=== PATIENT | male | born 1945 | race Caucasian/White ===

== ENCOUNTER 2018-12-03 12:38 | Emergency (ER) | payer MEDICARE ==
--- NOTE | 2018-12-03 13:21 | EDM.PDOC ---
ED HPI GENERAL MEDICAL PROBLEM - General Chief Complaint: General Stated Complaint: LEFT RING FINGER, RING IS TOO TIGHT Time Seen by Provider: 12/03/18 13:14 Source of Information: Reports: Patient History Limitations: Reports: No Limitations - History of Present Illness INITIAL COMMENTS - FREE TEXT/NARRATIVE: PT ARRIVED WITH A RING THAT WAS VERY TIGHT AND THERE WAS NUMBNESS IN THE FINGER. tHE CLINIC TRIED TO CUT IT OFF BUT COULDN,T GET IT. Onset: Today Duration: Hour(s): Location: Reports: Upper Extremity, Left Associated Symptoms: Reports: No Other Symptoms - Related Data Allergies Allergy/AdvReac Type Severity Reaction Status Date / Time No Known Allergies Allergy Verified 04/03/17 08:41 ED ROS GENERAL - Review of Systems Review Of Systems: See Below Musculoskeletal: Reports: Other (PT HS A TIGHT RING ON HIS LEFT RING FINGER THAT NEEDS CUTTING OFF. ) ED EXAM, GENERAL - Physical Exam Exam: See Below Free Text/Narrative:: PT ARRIVED WITH A RING THAT IS TIGHT ON HIS LEFT RING FINGER. tHE FINGER IS FEELING NUMB. Exam Limited By: No Limitations General Appearance: Alert Neurological: Other ( RING WAS CUT OFF WITHOUT DIFFICULTY) Course - Vital Signs Last Recorded V/S: Last Vital Signs Temp 36.8 C 12/03/18 13:00 Pulse 95 12/03/18 13:00 Resp 16 12/03/18 13:00 BP 149/86 H 12/03/18 13:00 Pulse Ox 96 12/03/18 13:00 Departure - Departure Time of Disposition: 13:18 Disposition: Home, Self-Care 01 Condition: Fair Clinical Impression: Ring avulsion - Discharge Information Referrals: Arnaud Kumar MD [Primary Care Provider] - Care Plan Goals: DISCHARGE -- GET RING EXPANDED.
== END 2018-12-03 13:31 | disposition home or self-care (01) ==
LOC: JP.ED 12:38
DX: S60.445A External constriction of left ring finger, initial encounter (principal); S61.205A Unspecified open wound of left ring finger without damage to nail, initial encounter; W49.04XA Ring or other jewelry causing external constriction, initial encounter
CPT/HCPCS: 99282; 99283

== ENCOUNTER 2019-10-25 18:42 | Emergency (ER) | payer MEDICARE ==
--- NOTE | 2019-10-25 19:53 | EDM.PDOC ---
ED HPI GENERAL MEDICAL PROBLEM - General Chief Complaint: Abdominal Pain Stated Complaint: FEVER,COUGH,BODY ACHES Time Seen by Provider: 10/25/19 20:30 Source of Information: Reports: Patient History Limitations: Reports: No Limitations - History of Present Illness INITIAL COMMENTS - FREE TEXT/NARRATIVE: 74 y/o male with a history of immunosuppression with RA and immune modulated medications including methotrexate and remacaide (last infusion was 7 weeks ago) presents to the ED with fever today of 102 F (40 C) groggy, anorexia, cough and abdominal pain. He developed these symptoms 10 days ago, but did not develop a temp until today. He notes a productive cough, and mild shortness of breath. His abdominal pain is mild and noted only with coughing. He denies nausea and vomiting. He denies loss of taste or smell. He reports no urinary symptoms, tick bites or a rash. He lives with his who is asymptomatic. He drives a road conductor for work and travels to [facility] and [place], [place] regularly for work but has not been out of the area otherwise. body aches Pain Score (Numeric/FACES): 4 - Related Data Allergies Allergy/AdvReac Type Severity Reaction Status Date / Time No Known Allergies Allergy Verified 10/25/19 20:16 Home Meds: Home Meds InFLIXimab [Remicade] 100 mg IV ASDIRECTED 12/03/18 [History] Folic Acid 0.4 mg PO WEEKLY 10/25/19 [History] metHOTREXate sodium [Methotrexate] 2.5 mg PO WEEKLY 10/25/19 [History] Past Medical History HEENT History: Reports: Impaired Vision Musculoskeletal History: Reports: Fracture Other Musculoskeletal History: ankles arms - Infectious Disease History Infectious Disease History: Reports: Chicken Pox, Measles, Mumps, Shingles - Past Surgical History Respiratory Surgical History: Reports: Lung Biopsies Male Surgical History: Reports: Other (See Below) Other Male Surgeries/Procedures: removal of stone in bladder Other Musculoskeletal Surgeries/Procedures:: arme surgery Social & Family History - Caffeine Use Caffeine Use: Reports: Coffee ED ROS GENERAL - Review of Systems Review Of Systems: See Below Constitutional: Reports: Fever, Malaise, Fatigue. Denies: Chills, Diaphoresis Respiratory: Reports: Shortness of Breath, Cough GI/Abdominal: Denies: Diarrhea, Vomiting : Denies: Dysuria, Flank Pain Musculoskeletal: Reports: Joint Pain Skin: Reports: No Symptoms Neurological: Reports: No Symptoms, Confusion ED EXAM, GI/ABD - Physical Exam Exam: See Below Exam Limited By: No Limitations General Appearance: Alert, WD/WN, No Apparent Distress Ears: Normal External Exam, Normal TMs Nose: Normal Inspection Throat/Mouth: Normal Inspection Neck: Normal Inspection Respiratory/Chest: Lungs Clear Cardiovascular: Normal Peripheral Pulses, Regular Rate, Rhythm. No: Diastolic Murmur, Systolic Murmur GI/Abdominal Exam: Normal Bowel Sounds Neurological: Alert, Oriented, CN II-XII Intact, Normal Cognition Skin Exam: Warm, Dry Lymphatic: No Adenopathy Course - Vital Signs Text/Narrative:: This 74 y/o male with immunosuppression presents to the ED with a 10 day history of a cough. He developed a temp of 102 today. His chest xray appears non- acute to me and his EKG appeared non concerning. His CBC reveals a normal WBC, but a plt count of 100K. His differential shows a lymphocytosis. His CRP is elevated which is concerning however he has RA and that may be the cause of the test elevation. His lactic acid is normal. His CMP showed a bilirubin of 1.2 but no elevation of transaminases or ALP. His urine had microscopic RBC and he was advised to have it repeat by his primary care provider in two weeks, otherwise his U/A was unremarkable. He was given Tylenol for a fever, a liter of NS IV, Rocephin 1 gm IV and azithromycin 500 mg PO. He had blood and urine cultures done. He is being discharged in stable condition with an Rx for azithromycin 250 mg PO daily for 4 days. He will follow up with his doctor in 2 days. A send-out Covid test was obtained and the results will be back in about 2 days. The patient agreed with this plan. Last Recorded V/S: Last Vital Signs Temp 37.0 C 10/25/19 21:22 Pulse 73 10/25/19 22:08 Resp 23 H 10/25/19 22:08 BP 116/62 10/25/19 22:08 Pulse Ox 91 L 10/25/19 22:08 - Orders/Labs/Meds Orders: Active Orders 24 hr Category Date Time Status EKG Documentation Completion [RC] ASDIRECTED Care 10/25/19 20:42 Active Chest 1V Frontal [CR] Stat Exams 10/25/19 20:37 Taken CORONAVIRUS COVID-19, CYNTHIA Stat Lab 10/25/19 20:42 Ordered CULTURE BLOOD [BC] Urgent Lab 10/25/19 21:05 Received CULTURE BLOOD [BC] Urgent Lab 10/25/19 21:10 Received CULTURE URINE [RM] Stat Lab 10/25/19 21:16 Received LYME, TOTAL AB TEST/REFLEX Stat Lab 10/25/19 21:05 Received Sodium Chloride 0.9% [Normal Saline] 1,000 ml Med 10/25/19 20:45 Active IV ASDIRECTED cefTRIAXone [Rocephin] 1 gm Med 10/25/19 21:55 Ordered Sodium Chloride 0.9% [Normal Saline] 50 ml IV ONETIME Blood Culture x2 Reflex Set [OM.PC] Urgent Oth 10/25/19 20:39 Ordered EKG 12 Lead [EK] Routine Ther 10/25/19 20:41 Ordered Medication Orders Sodium Chloride (Normal Saline) 1,000 mls @ 1,000 mls/hr IV ASDIRECTED FRANTZ Last Admin: 10/25/19 21:16 Dose: 1,000 mls/hr Documented by: HELGA Ceftriaxone Sodium 1 gm/ (Sodium Chloride) 50 mls @ 100 mls/hr IV ONETIME ONE Stop: 10/25/19 22:24 Labs: Laboratory Tests 10/25/19 10/25/19 10/25/19 Range/Units 21:02 21:05 21:05 WBC (4.5-11.0) K/uL RBC (4.30-5.90) M/uL Hgb (12.0-15.0) g/dL Hct (40.0-54.0) % MCV (80-98) fL MCH (27-31) pg MCHC (32-36) % Plt Count (150-400) K/uL Neut % (Auto) (36-66) % Lymph % (Auto) (24-44) % [place] % (Auto) (2-6) % Eos % (Auto) (2-4) % Baso % (Auto) (0-1) % Sodium 139 L (140-148) mmol/L Potassium 3.6 (3.6-5.2) mmol/L Chloride 101 (100-108) mmol/L Carbon Dioxide 29 (21-32) mmol/L Anion Gap 12.6 (5.0-14.0) mmol/L BUN 17 (7-18) mg/dL Creatinine 1.2 (0.8-1.3) mg/dL Est Cr Clr Drug Dosing 48.96 mL/min Estimated GFR (MDRD) 59 L (>60) Glucose 103 (74-106) mg/dL Lactic Acid 1.1 (0.4-2.0) mmol/L Calcium 8.5 (8.5-10.1) mg/dL Total Bilirubin 1.2 H (0.2-1.0) mg/dL AST 28 (15-37) U/L ALT 38 (12-78) U/L Alkaline Phosphatase 100 (46-116) U/L C-Reactive Protein 7.02 H (0.0-0.3) mg/dL Total Protein 7.7 (6.4-8.2) g/dL Albumin 3.5 (3.4-5.0) g/dL Globulin 4.2 H (2.3-3.5) g/dL Albumin/Globulin Ratio 0.8 L (1.2-2.2) Urine Color [place] A (YELLOW) Urine Appearance Clear (CLEAR) Urine pH 5.5 (5.0-8.0) Ur Specific [place] 1.025 (1.008-1.030) Urine Protein 30 H (NEGATIVE) mg/dL Urine Glucose (UA) Negative (NEGATIVE) mg/dL Urine Ketones Negative (NEGATIVE) mg/dL Urine Occult Blood Moderate H (NEGATIVE) Urine Nitrite Negative (NEGATIVE) Urine Bilirubin Small H (NEGATIVE) Urine Urobilinogen 2.0 H (0.2-1.0) EU/dL Ur Leukocyte Esterase Negative (NEGATIVE) Urine RBC 10-20 H (0-5) Urine WBC 0-5 (0-5) Ur Epithelial Cells Not seen Amorphous Sediment Few Urine Bacteria Rare Urine Mucus Not seen 10/25/19 Range/Units 21:05 WBC 7.5 (4.5-11.0) K/uL RBC 4.57 (4.30-5.90) M/uL Hgb 14.4 (12.0-15.0) g/dL Hct 44.6 (40.0-54.0) % MCV 98 (80-98) fL MCH 32 H (27-31) pg MCHC 32 (32-36) % Plt Count 100 L (150-400) K/uL Neut % (Auto) 34 L (36-66) % Lymph % (Auto) 49 H (24-44) % [place] % (Auto) 13 H (2-6) % Eos % (Auto) 0 L (2-4) % Baso % (Auto) 4 H (0-1) % Sodium (140-148) mmol/L Potassium (3.6-5.2) mmol/L Chloride (100-108) mmol/L Carbon Dioxide (21-32) mmol/L Anion Gap (5.0-14.0) mmol/L BUN (7-18) mg/dL Creatinine (0.8-1.3) mg/dL Est Cr Clr Drug Dosing mL/min Estimated GFR (MDRD) (>60) Glucose (74-106) mg/dL Lactic Acid (0.4-2.0) mmol/L Calcium (8.5-10.1) mg/dL Total Bilirubin (0.2-1.0) mg/dL AST (15-37) U/L ALT (12-78) U/L Alkaline Phosphatase (46-116) U/L C-Reactive Protein (0.0-0.3) mg/dL Total Protein (6.4-8.2) g/dL Albumin (3.4-5.0) g/dL Globulin (2.3-3.5) g/dL Albumin/Globulin Ratio (1.2-2.2) Urine Color (YELLOW) Urine Appearance (CLEAR) Urine pH (5.0-8.0) Ur Specific [place] (1.008-1.030) Urine Protein (NEGATIVE) mg/dL Urine Glucose (UA) (NEGATIVE) mg/dL Urine Ketones (NEGATIVE) mg/dL Urine Occult Blood (NEGATIVE) Urine Nitrite (NEGATIVE) Urine Bilirubin (NEGATIVE) Urine Urobilinogen (0.2-1.0) EU/dL Ur Leukocyte Esterase (NEGATIVE) Urine RBC (0-5) Urine WBC (0-5) Ur Epithelial Cells Amorphous Sediment Urine Bacteria Urine Mucus Meds: Medications Generic Name Dose Route Start Last Admin Trade Name Freq PRN Reason Stop Dose Admin Sodium Chloride 1,000 mls @ 1,000 mls/hr 10/25/19 20:45 10/25/19 21:16 Normal Saline IV 1,000 mls/hr ASDIRECTED FRANTZ Administration Ceftriaxone Sodium 1 gm/ 50 mls @ 100 mls/hr 10/25/19 21:55 Sodium Chloride IV 10/25/19 22:24 ONETIME ONE Discontinued Medications Generic Name Dose Route Start Last Admin Trade Name Constance PRN Reason Stop Dose Admin Acetaminophen 650 mg 10/25/19 20:33 10/25/19 21:16 Tylenol PO 10/25/19 20:34 650 mg NOW ONE Administration Azithromycin 1,000 mg 10/25/19 21:57 Zithromax PO 10/25/19 21:58 ONETIME ONE Azithromycin 500 mg 10/25/19 22:00 Zithromax PO 10/25/19 22:01 ONETIME ONE Departure - Departure Time of Disposition: 22:15 Disposition: Home, Self-Care 01 Condition: Good Clinical Impression: Upper respiratory infection - Discharge Information *PRESCRIPTION DRUG MONITORING PROGRAM REVIEWED*: No *COPY OF PRESCRIPTION DRUG MONITORING REPORT IN PATIENT [place]: No Referrals: Arnaud Kumar MD [Primary Care Provider] - Forms: ED Department Discharge Additional Instructions: Take the prescription as directed. Follow up with your doctor in 2 days. Return to the ER if you become more short of breath or if your abdominal pain worsens. The Covid test results should be back in two days. Call here or to your doctor in 3 days if you have not heard about the results. Sepsis Event Note (ED) - Focused Exam Vital Signs: Vital Signs Temp Pulse Resp BP Pulse Ox 10/25/19 22:08 73 23 H 116/62 91 L 10/25/19 21:22 37.0 C 75 24 H 122/57 L 96 10/25/19 21:20 73 14 122/57 L 96 10/25/19 20:31 37.2 C 74 16 125/63 96 10/25/19 20:10 37.2 C 74 16 125/63 96 10/25/19 19:44 37.2 C 87 16 134/61 94 L - My Orders Last 24 Hours: My Active Orders 10/25/19 20:37 Chest 1V Frontal [CR] Stat 10/25/19 20:39 Blood Culture x2 Reflex Set [OM.PC] Urgent 10/25/19 20:41 EKG 12 Lead [EK] Routine 10/25/19 20:42 EKG Documentation Completion [RC] ASDIRECTED CORONAVIRUS COVID-19, CYNTHIA Stat 10/25/19 20:45 Sodium Chloride 0.9% [Normal Saline] 1,000 ml IV ASDIRECTED 10/25/19 21:05 CULTURE BLOOD [BC] Urgent LYME, TOTAL AB TEST/REFLEX Stat 10/25/19 21:10 CULTURE BLOOD [BC] Urgent 10/25/19 21:16 CULTURE URINE [RM] Stat 10/25/19 21:55 cefTRIAXone [Rocephin] 1 gm Sodium Chloride 0.9% [Normal Saline] 50 ml IV ONETIME - Assessment/Plan Last 24 Hours: My Active Orders 10/25/19 20:37 Chest 1V Frontal [CR] Stat 10/25/19 20:39 Blood Culture x2 Reflex Set [OM.PC] Urgent 10/25/19 20:41 EKG 12 Lead [EK] Routine 10/25/19 20:42 EKG Documentation Completion [RC] ASDIRECTED CORONAVIRUS COVID-19, CYNTHIA Stat 10/25/19 20:45 Sodium Chloride 0.9% [Normal Saline] 1,000 ml IV ASDIRECTED 10/25/19 21:05 CULTURE BLOOD [BC] Urgent LYME, TOTAL AB TEST/REFLEX Stat 10/25/19 21:10 CULTURE BLOOD [BC] Urgent 10/25/19 21:16 CULTURE URINE [RM] Stat 10/25/19 21:55 cefTRIAXone [Rocephin] 1 gm Sodium Chloride 0.9% [Normal Saline] 50 ml IV ONETIME
[2019-10-25] MEDS ORDERED: Acetaminophen 325 MG Tab PO ONE (20:33)
[2019-10-25] MEDS ORDERED: Sodium Chloride 0.9% 1,000 ML IV SCH (20:45)
[2019-10-25] MEDS ORDERED: cefTRIAXone 1 GM in Sodium Chloride 0.9% 50 ML IV ONE (21:55)
[2019-10-25] MEDS ORDERED: Azithromycin 250 MG Tab PO ONE ×2 (21:57→22:00)
--- NOTE | 2019-10-26 10:44 | CR ---
CHEST: Portable 10/25/2019 at 9:23 PM CLINICAL HISTORY:Fever COMPARISON:CT 09/30/2019 FINDINGS: The heart size, pulmonary vascularity and hilar structures are normal. No infiltrate effusion or pneumothorax is seen. Lungs are hyperaerated. There are atherosclerotic changes in the aorta. IMPRESSION: No acute cardiopulmonary process. Changes of COPD
[2019-10-28 12:11] LABS: LYME IGG/IGM AB <0.91 ISR (0.00-0.90)
== END 2019-10-25 23:14 | disposition home or self-care (01) ==
LOC: JP.ED 18:42
DX: J06.9 Acute upper respiratory infection, unspecified (principal); Z79.899 Other long term (current) drug therapy; Z20.828 Contact with and (suspected) exposure to other viral communicable diseases
CPT/HCPCS: 36415; 71045; 80053; 81001; 83605; 85025; 86140; 86618; 87040; 87086; 93005; 93010; 96361; 96365; 99285; A9270; J0696; J7030; J7050; U0002

== ENCOUNTER 2019-10-26 12:33 | Inpatient (IN) | payer MEDICARE ==
[2019-10-26] MEDS ORDERED: Acetaminophen 500 MG Tab PO ONE (12:58)
[2019-10-26] MEDS ORDERED: Sodium Chloride 0.9% 1,000 ML IV ONE (13:23)
[2019-10-26] MEDS ORDERED: LORazepam 2 MG/ML SDV IVPUSH PRN (13:23)
[2019-10-26] MEDS ORDERED: Ibuprofen 600 MG Tab PO PRN (13:23)
[2019-10-26] MEDS ORDERED: Magnesium Hydroxide 400 MG/5 ML Susp 30 ML Cup PO PRN (13:23)
[2019-10-26] MEDS ORDERED: Acetaminophen 325 MG Tab PO PRN (13:23)
[2019-10-26] MEDS ORDERED: Ondansetron 4 MG/2 ML SDV IV PRN (13:23)
[2019-10-26] MEDS ORDERED: Ondansetron 4 MG Tab.DIS PO PRN (13:23)
--- NOTE | 2019-10-26 13:32 | PCM.HP.2 ---
H&P History of Present Illness - General Date of Service: 10/26/19 Admit Problem/Dx: Admission Diagnosis/Problem Admission Diagnosis/Problem Human anaplasmosis Source of Information: Patient, Family, Provider History Limitations: Reports: No Limitations - History of Present Illness Initial Comments - Free Text/Narative: CC: fever HPI: Adam presents to the hospital today as a direct admission from the clinic. He was seen in the emergency room yesterday and thought to have an upper respiratory infection was started on antibiotics but sent home since he was doing fairly well at that point. He reports that he has been sick for about 1 week. He has had increasing fatigue as well as myalgias and a mild headache. Appetite has not been very good and he has been sleeping more than usual. He does report a mild intermittent cough and feels a little more short of breath than usual but nothing dramatic. He has not had any chest pain or abdominal pain but has had some nausea and a couple episodes of vomiting. Symptoms have progressed over the past several days. Yesterday he was noted to be confused and weak and had a fever of 102 so he was brought to the emergency room. Temperature was normal in the emergency room and work-up was fairly unremarkable. He seemed to be doing better so he went home. Overnight he had increasing difficulty with weakness and was confused and febrile again this morning so he was brought in for repeat evaluation. No obvious sick contacts and no significant travel. He does spend a fair amount of time outdoors and did have a tick bite about 3 weeks ago. Work-up in the clinic was a little bit suspicious for right lower lobe pneumonia. Repeat laboratory testing fairly unremarkable other than thrombocytopenia and mild elevation of bilirubin. Urinalysis moderately suggestive of infection. Patient was febrile and confused. He was sent to the hospital for direct admission. - Related Data Allergies/Adverse Reactions: Allergies Allergy/AdvReac Type Severity Reaction Status Date / Time No Known Allergies Allergy Verified 10/25/19 20:16 Home Medications: Home Meds InFLIXimab [Remicade] 100 mg IV ASDIRECTED 12/03/18 [History] Folic Acid 0.4 mg PO WEEKLY 10/25/19 [History] metHOTREXate sodium [Methotrexate] 2.5 mg PO WEEKLY 10/25/19 [History] Past Medical History HEENT History: Reports: Impaired Vision Respiratory History: Reports: Other (See Below) Other Respiratory History: lung nodules Musculoskeletal History: Reports: Fracture Other Musculoskeletal History: ankles arms - Infectious Disease History Infectious Disease History: Reports: Chicken Pox, Measles, Mumps, Shingles - Past Surgical History Respiratory Surgical History: Reports: Lung Biopsies Male Surgical History: Reports: Other (See Below) Other Male Surgeries/Procedures: removal of stone in bladder Other Musculoskeletal Surgeries/Procedures:: arme surgery Social & Family History - Family History Cardiac: Denies: CAD - Tobacco Use Smoking Status *Q: Former Smoker Tobacco Use Within Last Twelve Months: No - Caffeine Use Caffeine Use: Reports: Coffee - Recreational Drug Use Recreational Drug Use: No H&P Review of Systems - Review of Systems: Review Of Systems: See Below Free Text/Narrative: A complete 12 point review of systems was obtained. Pertinent positives and negatives are noted in the history of present illness. All other systems were reviewed and were negative except as noted. Exam - Exam Exam: See Below - Vital Signs Vital Signs: Last Vital Signs Temp 39.8 C H 10/26/19 12:52 Pulse 88 10/26/19 12:52 Resp 16 10/26/19 12:52 BP 135/60 10/26/19 12:52 Pulse Ox 94 L 10/26/19 12:52 - Exam Quality Assessment: No: Supplemental Oxygen General: Alert, Cooperative. No: Mild Distress HEENT: Conjunctiva Clear. No: Mucosa Moist & Paraje (dry), Scleral Icterus Neck: Supple, Trachea Midline. No: Lymphadenopathy Lungs: Clear to Auscultation, Normal Respiratory Effort. No: Crackles Cardiovascular: Regular Rhythm, Tachycardia GI/Abdominal Exam: Normal Bowel Sounds, Soft, Non-Tender, No Distention Back Exam: Normal Inspection. No: Full Range of Motion Extremities: No Pedal Edema. No: Increased Warmth Peripheral Pulses: 2+: Dorsalis Pedis (L), Dorsalis Pedis (R) Skin: Warm, Dry, Other (7 mm rounded erythematous area left medial arm near the elbow ) Neuro Extensive - Mental Status: Alert, Nl Response to Commands Neuro Extensive - Motor, Sensory, Reflexes: Tremor. No: Dysarthria, Abnormal Motor Psychiatric: Alert, Normal Affect - Patient Data Lab Results Last 24 hrs: WBC 8000 Platelets 102,000 Creat 1.1 K+3.7 Imaging Impressions Last 24 hrs: Chest [id number] to view images from the clinic-final radiology report is pending. Sepsis Event Note - Evaluation Sepsis Screening Result: No Definite Risk - Focused Exam Vital Signs: Vital Signs Temp Pulse Resp BP Pulse Ox 10/26/19 12:52 39.8 C H 88 16 135/60 94 L Date Exam was Performed: 10/26/19 Time Exam was Performed: 15:25 *Q Meaningful Use (ADM) - VTE Risk Assess *Q Each Risk Factor Represents 1 Point: Obesity ( BMI > 25 kg/m2) Total Score 1 Point Risk Factors: 1 Each Risk Factor Represents 2 Points: None Total Score 2 Point Risk Factors: 0 Each Risk Factor Represents 3 Points: Age 75 Years or Greater Total Score 3 Point Risk Factors: 3 Each Risk Factor Represents 5 Points: None Total Score 5 Point Risk Factors: 0 Venous Thromboembolism Risk Factor Score *Q: 4 - Problem List (1) Human anaplasmosis SNOMED Code(s): 079242349 ICD Code: A77.49 - OTHER EHRLICHIOSIS Status: Suspected Current Visit: Yes (2) Rheumatoid arthritis SNOMED Code(s): 08007969 ICD Code: M06.9 - RHEUMATOID ARTHRITIS, UNSPECIFIED Status: Chronic Cu rrent Visit: Yes Qualifiers: Rheumatoid arthritis location: unspecified site Rheumatoid factor presence: unspecified presence Qualified Code(s): M06.9 - Rheumatoid arthritis, unspecified Problem List Initiated/Reviewed/Updated: Yes Orders Last 24hrs: Active Orders 24 hr Category Date Time Status Patient Status [ADT] Routine ADT 10/26/19 13:23 Active Antiembolic Devices [RC] .Routine Care 10/26/19 13:23 Active Intake and Output [RC] QSHIFT Care 10/26/19 13:23 Active Notify Provider Vital Signs [RC] ASDIRECTED Care 10/26/19 13:23 Active Oxygen Therapy [RC] PRN Care 10/26/19 13:23 Active Up With Assistance [RC] ASDIRECTED Care 10/26/19 13:23 Active VTE/DVT Education [RC] Per Unit Routine Care 10/26/19 13:23 Active Vital Signs [RC] Q4H Care 10/26/19 13:23 Active Regular Diet [DIET] Diet 10/26/19 Dinner Active CBC W/O DIFF,HEMOGRAM [HEME] AM Lab 10/27/19 05:11 Ordered COMPREHENSIVE METABOLIC PN,CMP [CHEM] AM Lab 10/27/19 05:11 Ordered HUMAN GRANULOCYTIC KESHAV-HGE Routine Lab 10/27/19 05:00 Ordered MAGNESIUM [CHEM] AM Lab 10/27/19 05:11 Ordered Acetaminophen [Tylenol] Med 10/26/19 13:23 Ordered 650 mg PO Q4H PRN Docusate Sodium/Sennosides [Senna Plus] Med 10/26/19 13:23 Ordered 1 tab PO BID PRN Doxycycline [Vibramycin] 100 mg Med 10/26/19 13:30 Ordered Sodium Chloride 0.9% [Normal Saline] 100 ml IV Q12H Ibuprofen [Motrin] Med 10/26/19 13:23 Ordered 600 mg PO Q6H PRN LORazepam [Ativan] Med 10/26/19 13:23 Ordered 0.5 mg IVPUSH Q4H PRN Lactobacillus Rhamnosus GG [Culturelle] Med 10/26/19 21:00 Ordered 1 cap PO BID Magnesium Hydroxide [Milk of Magnesia] Med 10/26/19 13:23 Ordered 30 ml PO Q12H PRN Melatonin Med 10/26/19 21:00 Ordered 9 mg PO BEDTIME Ondansetron [Zofran ODT] Med 10/26/19 13:23 Ordered 4 mg PO Q6H PRN Ondansetron [Zofran] Med 10/26/19 13:23 Ordered 4 mg IV Q6H PRN Sodium Chloride 0.9% [Normal Saline] 1,000 ml Med 10/26/19 13:23 Ordered IV .BOLUS Sodium Chloride 0.9% [Normal Saline] 1,000 ml Med 10/26/19 13:30 Ordered IV ASDIRECTED cefTRIAXone [Rocephin] 2 gm Med 10/26/19 13:30 Ordered Sodium Chloride 0.9% [Normal Saline] 50 ml IV Q24H Sequential Compression Device [OM.PC] Routine Oth 10/26/19 13:23 Ordered Resuscitation Status Routine Resus Stat 10/26/19 13:23 Ordered Medication Orders Acetaminophen (Tylenol) 650 mg PO Q4H PRN PRN Reason: Pain (Mild 1-3)/fever Sodium Chloride (Normal Saline) 1,000 mls @ 125 mls/hr IV ASDIRECTED FRANTZ Sodium Chloride (Normal Saline) 1,000 mls @ 500 mls/hr IV .BOLUS ONE Stop: 10/26/19 15:22 Doxycycline Hyclate 100 mg/ (Sodium Chloride) 100 mls @ 100 mls/hr IV Q12H FRANTZ Ceftriaxone Sodium 2 gm/ (Sodium Chloride) 50 mls @ 100 mls/hr IV Q24H FRANTZ Ibuprofen (Motrin) 600 mg PO Q6H PRN PRN Reason: Pain/Fever Lactobacillus Rhamnosus (Culturelle) 1 cap PO BID FRANTZ Lorazepam (Ativan) 0.5 mg IVPUSH Q4H PRN PRN Reason: Nausea/Vomiting Magnesium Hydroxide (Milk Of Magnesia) 30 ml PO Q12H PRN PRN Reason: Constipation Melatonin (Melatonin) 9 mg PO BEDTIME FRANTZ Ondansetron HCl (Zofran) 4 mg IV Q6H PRN PRN Reason: Nausea/Vomiting Ondansetron HCl (Zofran Odt) 4 mg PO Q6H PRN PRN Reason: Nausea able to take PO Senna/Docusate Sodium (Senna Plus) 1 tab PO BID PRN PRN Reason: Constipation Assessment/Plan Comment:: ASSESSMENT AND PLAN - Anaplasmosis, 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 He does have thrombocytopenia and mild elevation of bilirubin and urine possibly suggestive of infection. He does have a known tick exposure 3 weeks ago. No other obvious source of infection based on history or examination. Urinary tract infection could be considered and culture is pending at the clinic. -Antibiotic coverage with ceftriaxone and doxycycline -Follow-up tick panel sent from the emergency room -Follow-up urine culture from the clinic -Aggressive IV fluids -Symptomatic management of pain and fever Rheumatoid arthritis-he is on chronic immunosuppressive therapy with 2 different agents. -Hold immunosuppression until he has recovered from the infection Maintenance issues - - DVT prophylaxis -mechanical - GI prophylaxis -not indicated - Nutrition -regular - Ozuna catheter -not indicated CODE STATUS -full code Admission justification -this patient will be admitted for inpatient services and is medically appropriate meeting medical necessity for inpatient admission as outlined in my documentation. I reasonably expect the patient will require inpatient services that span a period time over 2 midnights. I reasonably expect this patient to be discharged or transferred within 96 hours [facility]. Disposition -I would anticipate discharge home after the hospital stay Primary care physician -Dr Arnaud Green M.D. - Mortality Measure Prognosis:: Good
[2019-10-26] MEDS: Doxycycline 100 MG in Sodium Chloride 0.9% 100 ML IV SCH (14:09)
[2019-10-26] MEDS: cefTRIAXone 2 GM in Sodium Chloride 0.9% 50 ML IV SCH (14:12)
[2019-10-26] MEDS: Sodium Chloride 0.9% 1,000 ML IV SCH (17:34)
[2019-10-26] MEDS: Lactobacillus Rhamnosus GG (Probiotic) Cap PO SCH (21:38)
[2019-10-26] MEDS: Melatonin 3 MG Tab PO SCH (21:38)
[2019-10-27] MEDS: Sodium Chloride 0.9% 1,000 ML IV SCH ×2 (00:17→08:58)
[2019-10-27] MEDS: Doxycycline 100 MG in Sodium Chloride 0.9% 100 ML IV SCH ×2 (02:17→13:40)
[2019-10-27] MEDS: Lactobacillus Rhamnosus GG (Probiotic) Cap PO SCH ×2 (08:18→21:02)
[2019-10-27] MEDS: cefTRIAXone 2 GM in Sodium Chloride 0.9% 50 ML IV SCH (14:48)
--- NOTE | 2019-10-27 15:06 | PCM.PN ---
- General Info Date of Service: 10/27/19 Subjective Update: No acute events overnight. Low-grade fevers. Feeling better today. Less confusion. Strength is better. Appetite is better. Labs are stable. Vital signs are all stable. Urine culture from Saturday night with no growth so far. In general he is feeling better and doing better. Functional Status: Reports: Pain Controlled, Tolerating Diet - Review of Systems General: Reports: Fever, Weakness - Patient Data Vitals - Most Recent: Last Vital Signs Temp 36.2 C 10/27/19 11:56 Pulse 65 10/27/19 11:56 Resp 16 10/27/19 11:56 BP 106/56 L 10/27/19 11:56 Pulse Ox 95 10/27/19 11:56 Weight - Most Recent: 83.824 kg I&O - Last 24 Hours: Intake & Output 10/27/19 10/27/19 10/27/19 06:59 14:59 22:59 Intake Total 1704 500 Balance 1704 500 Lab Results Last 24 Hours: Laboratory Results - last 24 hr 10/27/19 10/27/19 Range/Units 05:30 05:30 WBC 7.9 (4.5-11.0) K/uL RBC 4.09 L (4.30-5.90) M/uL Hgb 13.1 (12.0-15.0) g/dL Hct 39.7 L (40.0-54.0) % MCV 97 (80-98) fL MCH 32 H (27-31) pg MCHC 33 (32-36) % Plt Count 109 L (150-400) K/uL Sodium 141 (140-148) mmol/L Potassium 3.5 L (3.6-5.2) mmol/L Chloride 108 (100-108) mmol/L Carbon Dioxide 24 (21-32) mmol/L Anion Gap 12.5 (5.0-14.0) mmol/L BUN 21 H (7-18) mg/dL Creatinine 1.0 (0.8-1.3) mg/dL Est Cr Clr Drug Dosing TNP Estimated GFR (MDRD) > 60 (>60) Glucose 108 H (74-106) mg/dL Calcium 7.7 L (8.5-10.1) mg/dL Magnesium 1.9 (1.8-2.4) mg/dL Total Bilirubin 1.0 (0.2-1.0) mg/dL AST 26 (15-37) U/L ALT 28 (12-78) U/L Alkaline Phosphatase 74 (46-116) U/L Total Protein 6.3 L (6.4-8.2) g/dL Albumin 2.6 L (3.4-5.0) g/dL Globulin 3.7 H (2.3-3.5) g/dL Albumin/Globulin Ratio 0.7 L (1.2-2.2) Med Orders - Current: Current Medications Acetaminophen (Tylenol) 650 mg PO Q4H PRN PRN Reason: Pain (Mild 1-3)/fever Sodium Chloride (Normal Saline) 1,000 mls @ 125 mls/hr IV ASDIRECTED [facility] Last Admin: 10/27/19 08:58 Dose: 125 mls/hr Documented by: Doxycycline Hyclate 100 mg/ (Sodium Chloride) 100 mls @ 100 mls/hr IV Q12H [facility] Last Admin: 10/27/19 13:40 Dose: 100 mls/hr Documented by: Ceftriaxone Sodium 2 gm/ (Sodium Chloride) 50 mls @ 100 mls/hr IV Q24H [facility] Last Admin: 10/27/19 14:48 Dose: 100 mls/hr Documented by: Ibuprofen (Motrin) 600 mg PO Q6H PRN PRN Reason: Pain/Fever Last Admin: 10/26/19 19:24 Dose: 600 mg Documented by: Lactobacillus Rhamnosus (Culturelle) 1 cap PO BID [facility] Last Admin: 10/27/19 08:18 Dose: 1 cap Documented by: Lorazepam (Ativan) 0.5 mg IVPUSH Q4H PRN PRN Reason: Nausea/Vomiting Magnesium Hydroxide (Milk Of Magnesia) 30 ml PO Q12H PRN PRN Reason: Constipation Melatonin (Melatonin) 9 mg PO BEDTIME [facility] Last Admin: 10/26/19 21:38 Dose: 9 mg Documented by: Ondansetron HCl (Zofran) 4 mg IV Q6H PRN PRN Reason: Nausea/Vomiting Ondansetron HCl (Zofran Odt) 4 mg PO Q6H PRN PRN Reason: Nausea able to take PO Senna/Docusate Sodium (Senna Plus) 1 tab PO BID PRN PRN Reason: Constipation Discontinued Medications Acetaminophen (Tylenol Extra Strength) 1,000 mg PO ONETIME ONE Stop: 10/26/19 12:59 Last Admin: 10/26/19 13:15 Dose: 1,000 mg Documented by: Sodium Chloride (Normal Saline) 1,000 mls @ 500 mls/hr IV .BOLUS ONE Stop: 10/26/19 15:22 Last Admin: 10/26/19 13:39 Dose: 500 mls/hr Documented by: - Exam Quality Assessment: No: Supplemental Oxygen General: Alert, Oriented, Cooperative, No Acute Distress Lungs: Normal Respiratory Effort Cardiovascular: Regular Rate, Regular Rhythm GI/Abdominal Exam: Soft, No Distention Extremities: No Pedal Edema Psy/Mental Status: Alert, Normal Affect Sepsis Event Note - Evaluation Sepsis Screening Result: No Definite Risk - Focused Exam Vital Signs: Vital Signs Temp Pulse Pulse Resp BP Pulse Ox 10/27/19 11:56 36.2 C 65 16 106/56 L 95 10/27/19 08:09 35.6 C L 59 L 16 117/59 L 95 Date Exam was Performed: 10/27/19 Time Exam was Performed: 16:29 - Problem List & Annotations (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 Code(s): A77.49 - OTHER EHRLICHIOSIS Status: Suspected Current Visit: Yes (2) Rheumatoid arthritis SNOMED Code(s): 57130072 Code(s): M06.9 - RHEUMATOID ARTHRITIS, UNSPECIFIED Status: Chronic Current Visit: Yes Qualifiers: Rheumatoid arthritis location: unspecified site Rheumatoid factor presence: unspecified presence Qualified Code(s): M06.9 - Rheumatoid arthritis, unspecified - Problem List Review Problem List Initiated/Reviewed/Updated: Yes - My Orders Last 24 Hours: My Active Orders 10/26/19 15:00 cefTRIAXone [Rocephin] 2 gm Sodium Chloride 0.9% [Normal Saline] 50 ml IV Q24H 10/26/19 Dinner Regular Diet [DIET] 10/26/19 21:00 Lactobacillus Rhamnosus GG [Culturelle] 1 cap PO BID Melatonin 9 mg PO BEDTIME 10/27/19 07:18 HUMAN GRANULOCYTIC KESHAV-HGE Routine 10/28/19 05:00 BASIC METABOLIC PANEL,BMP [CHEM] Timed CBC W/O DIFF,HEMOGRAM [HEME] Timed (1) - Plan Plan:: ASSESSMENT AND PLAN - Anaplasmosis, 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 Urine culture from Saturday night with no growth to date and clinic cultures pending. Clinically doing better. Confusion much better today. -Antibiotic coverage with ceftriaxone and doxycycline -Follow-up tick panel sent from the emergency room -Follow-up urine culture from the clinic -Saline lock IV -Symptomatic management of pain and fever Rheumatoid arthritis-he is on chronic immunosuppressive therapy with 2 different agents. -Hold immunosuppression until he has recovered from the infection Maintenance issues - - DVT prophylaxis -mechanical - GI prophylaxis -not indicated - Nutrition -regular Disposition -I would anticipate discharge home after the hospital stay Primary care physician -Dr Arnaud Green M.D.
[2019-10-27] MEDS: Melatonin 3 MG Tab PO SCH (21:02)
[2019-10-28] MEDS: Doxycycline 100 MG in Sodium Chloride 0.9% 100 ML IV SCH (01:56)
[2019-10-28] MEDS: Lactobacillus Rhamnosus GG (Probiotic) Cap PO SCH (08:08)
[2019-10-28] MEDS ORDERED: Potassium Chloride 20 MEQ Tab.ER PO ONE (09:00)
--- NOTE | 2019-10-28 11:58 | PCM.DCSUM1 ---
Discharge Summary - Hospital Course Brief History: 74-year-old male with history of rheumatoid arthritis who presented with weakness, confusion and fever. He was directly admitted from the clinic for management of infection with source not obviously apparent at the time of admission. Diagnosis: Stroke: No - Discharge Data Discharge Date: 10/28/19 Discharge Disposition: Home, Self-Care 01 Condition: Good - Referral to Home Health Primary Care Physician: Arnaud Kumar MD - Discharge Diagnosis/Problem(s) (1) Human anaplasmosis SNOMED Code(s): 252966294 ICD Code: A77.49 - OTHER EHRLICHIOSIS Status: Suspected (2) Rheumatoid arthritis SNOMED Code(s): 24315464 ICD Code: M06.9 - RHEUMATOID ARTHRITIS, UNSPECIFIED Status: Chronic Qualifiers: Rheumatoid arthritis location: unspecified site Rheumatoid factor presence: unspecified presence Qualified Code(s): M06.9 - Rheumatoid arthritis, unspecified - Patient Summary/Data Labs Pending at D/C: Tick panel COVID19 testing Hospital Course: Naun presented as a direct admission from the clinic where he had initially presented with fever, weakness and confusion. He was febrile in the clinic. There was concern for developing sepsis. There was some concern for potentially a urinary tract infection and potentially a right lower lobe pneumonia in the clinic. Patient was directly admitted to the hospital. I was more suspicious of a tickborne illness given recent tick bite on his left arm and his low platelets and mildly abnormal hepatic panel. He did not have any pulmonary symptoms and I thought the chest x-ray was clear. Urine moderately suggestive of infection so we did double cover urinary tract pathogens and tickborne disease. He was slightly confused but relatively stable. He received IV fluids overnight following admission. By the next morning he was moderately improved. Still a little bit weak and still a little bit confused but quite a bit better. His vital signs remained stable. Laboratory studies were essentially stable but mostly unremarkable even at the time of admission. He did not have any fevers. Urine culture at 24 hours was negative. Throughout the next 24 hours there were no significant issues. He did not have any fevers. His cultures all remain negative. Symptomatically he is doing much better. His strength is better. His confusion has resolved. 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 Will be discharged home with the 3-week course of antibiotics for tickborne disease. His urine culture was negative at 48 hours. His COVID testing is still pending. I think it is extremely unlikely that he has occult infection. He will have early follow-up. - Patient Instructions Diet: Regular Diet as Tolerated Activity: As Tolerated Driving: May Drive Today Showering/Bathing: May Shower Notify Provider of: Fever, Increased Pain Other/Special Instructions: 1. You were in the hospital for management of a presumed tickborne infection such as anaplasmosis and/or Lyme disease. The serologies for Lyme disease and anaplasmosis are still pending at the time of discharge. Your condition has been improving with antibiotics and IV fluids. I do recommend that you complete a course of antibiotics for the infection. Please take doxycycline 100 mg twice daily with food for 19 more days. Your first dose outside of the hospital will be due tonight. This antibiotic can make your skin more sensitive to the sun so you should be sure to wear long clothing and or high-powered sunscreen. Your Covid testing is still pending as well. 2. Continue your usual medications as previously prescribed. 3. Follow up with Dr Arnaud Kumar in 1 to 2 weeks - Discharge Plan *PRESCRIPTION DRUG MONITORING PROGRAM REVIEWED*: Not Applicable *COPY OF PRESCRIPTION DRUG MONITORING REPORT IN PATIENT [place]: Not Applicable Prescriptions/Med Rec: Doxycycline Hyclate 100 mg PO BID #38 capsule Home Medications: Home Meds InFLIXimab [Remicade] 100 mg IV ASDIRECTED 12/03/18 [History] Folic Acid 0.4 mg PO DAILY 10/25/19 [History] metHOTREXate sodium [Methotrexate] 2.5 mg PO WEEKLY 10/25/19 [History] Doxycycline Hyclate 100 mg PO BID #38 capsule 10/28/19 [Rx] Oxygen Therapy Mode: Room Air Patient Handouts: Doxycycline tablets or capsules, Ehrlichiosis and Anaplasmosis Referrals: Arnaud Kumar MD [Primary Care Provider] - 11/10/19 1:30 pm (1-2 weeks -follow-up hospital stay for presumed anaplasmosis ) - Discharge Summary/Plan Comment DC Time >30 min.: No - Patient Data Vitals - Most Recent: Last Vital Signs Temp 36.2 C 10/28/19 10:55 Pulse 82 10/28/19 10:55 Resp 16 10/28/19 10:55 BP 143/68 H 10/28/19 10:55 Pulse Ox 93 L 10/28/19 10:55 Weight - Most Recent: 83.824 kg I&O - Last 24 hours: Intake & Output 10/27/19 10/28/19 10/28/19 22:59 06:59 14:59 Intake Total 1129 300 Balance 1129 300 Lab Results - Last 24 hrs: Laboratory Results - last 24 hr 10/28/19 10/28/19 Range/Units 05:00 05:00 WBC 7.9 (4.5-11.0) K/uL RBC 4.05 L (4.30-5.90) M/uL Hgb 12.6 (12.0-15.0) g/dL Hct 38.9 L (40.0-54.0) % MCV 96 (80-98) fL MCH 31 (27-31) pg MCHC 32 (32-36) % Plt Count 128 L (150-400) K/uL Sodium 142 (140-148) mmol/L Potassium 3.4 L (3.6-5.2) mmol/L Chloride 109 H (100-108) mmol/L Carbon Dioxide 23 (21-32) mmol/L Anion Gap 13.4 (5.0-14.0) mmol/L BUN 15 (7-18) mg/dL Creatinine 1.0 (0.8-1.3) mg/dL Est Cr Clr Drug Dosing 58.61 mL/min Estimated GFR (MDRD) > 60 (>60) Glucose 110 H (74-106) mg/dL Calcium 7.8 L (8.5-10.1) mg/dL Med Orders - Current: Current Medications Acetaminophen (Tylenol) 650 mg PO Q4H PRN PRN Reason: Pain (Mild 1-3)/fever Doxycycline Hyclate 100 mg/ (Sodium Chloride) 100 mls @ 100 mls/hr IV Q12H [facility] Last Admin: 10/28/19 01:56 Dose: 100 mls/hr Documented by: Ceftriaxone Sodium 2 gm/ (Sodium Chloride) 50 mls @ 100 mls/hr IV Q24H [facility] Last Admin: 10/27/19 14:48 Dose: 100 mls/hr Documented by: Ibuprofen (Motrin) 600 mg PO Q6H PRN PRN Reason: Pain/Fever Last Admin: 10/26/19 19:24 Dose: 600 mg Documented by: Lactobacillus Rhamnosus (Culturelle) 1 cap PO BID [facility] Last Admin: 10/28/19 08:08 Dose: 1 cap Documented by: Lorazepam (Ativan) 0.5 mg IVPUSH Q4H PRN PRN Reason: Nausea/Vomiting Magnesium Hydroxide (Milk Of Magnesia) 30 ml PO Q12H PRN PRN Reason: Constipation Melatonin (Melatonin) 9 mg PO BEDTIME [facility] Last Admin: 10/27/19 21:02 Dose: 9 mg Documented by: Ondansetron HCl (Zofran) 4 mg IV Q6H PRN PRN Reason: Nausea/Vomiting Ondansetron HCl (Zofran Odt) 4 mg PO Q6H PRN PRN Reason: Nausea able to take PO Senna/Docusate Sodium (Senna Plus) 1 tab PO BID PRN PRN Reason: Constipation Discontinued Medications Acetaminophen (Tylenol Extra Strength) 1,000 mg PO ONETIME ONE Stop: 10/26/19 12:59 Last Admin: 10/26/19 13:15 Dose: 1,000 mg Documented by: Sodium Chloride (Normal Saline) 1,000 mls @ 125 mls/hr IV ASDIRECTED [facility] Last Admin: 10/27/19 08:58 Dose: 125 mls/hr Documented by: Sodium Chloride (Normal Saline) 1,000 mls @ 500 mls/hr IV .BOLUS ONE Stop: 10/26/19 15:22 Last Admin: 10/26/19 13:39 Dose: 500 mls/hr Documented by: Potassium Chloride (Klor-Con M20) 40 meq PO ONETIME ONE Stop: 10/28/19 09:01 Last Admin: 10/28/19 09:05 Dose: 40 meq Documented by:
[2019-10-29 14:12] LABS: HGE IGG TITER Negative (Neg:<1:64); HGE IGM TITER Negative (Neg:<1:20)
== END 2019-10-28 12:15 | disposition home or self-care (01) | DRG 869 ==
LOC: JP.MS 12:33
PROVIDERS: ADMIT Internal Medicine; ATTEND Internal Medicine
DX: A77.49 Other ehrlichiosis (principal); M06.9 Rheumatoid arthritis, unspecified; A69.20 Lyme disease, unspecified; D69.6 Thrombocytopenia, unspecified; Z79.899 Other long term (current) drug therapy; Z87.891 Personal history of nicotine dependence
CPT/HCPCS: 36415; 80048; 80053; 83735; 85027; 86666; 99238; A9270-GY; J0696; J3490; J7030; J7050

== ENCOUNTER 2022-07-29 15:13 | Emergency (ER) | payer MEDICARE ==
[2022-07-29 16:17] LABS: CORONAVIRUS COVID-19 NAA NEGATIVE (NEGATIVE)
== END 2022-07-29 16:45 | disposition home or self-care (01) ==
LOC: JP.ED 15:13
DX: J40 Bronchitis, not specified as acute or chronic (principal); Z20.822 Contact with and (suspected) exposure to COVID-19; Z88.2 Allergy status to sulfonamides; Z88.8 Allergy status to other drugs, medicaments and biological substances
CPT/HCPCS: 0241U; 99284; 99282